=== PATIENT | male | born 1960 ===

== ENCOUNTER 2017-05-23 19:12 | Emergency (ER) | payer SELFPAY ==
[2017-05-23 19:36] VITALS: BP 157/90; PULSE 98; RESP 18; TEMP 98.3; O2SAT 99
--- NOTE | 2017-05-23 20:51 | ED PDOC ---
Upper Extremity Pain/Injury Time Seen by Provider: 05/23/17 20:48 Chief Complaint (Nursing): Abnormal Skin Integrity Chief Complaint (Provider): Left Arm Laceration History Per: Patient History/Exam Limitations: no limitations Onset/Duration Of Symptoms: Hrs (x2) Current Symptoms Are (Timing): Still Present Additional Complaint(s): 57 y/o male with a pmhx of diabetes, who presents to the ED for evaluation of a laceration to his left forearm x2 hours prior to arrival. Patient states he was working with a tool in his home when the injury occurred. States his Tetanus status is unknown. PMD: Provider TBD Past Medical History Reviewed: Historical Data, Nursing Documentation, Vital Signs Vital Signs: Last Vital Signs Temp 98.3 F 05/23/17 19:32 Pulse 98 H 05/23/17 19:32 Resp 18 05/23/17 19:32 BP 157/90 H 05/23/17 19:32 Pulse Ox 99 05/23/17 19:32 - Medical History PMH: Diabetes - Surgical History Surgical History: No Surg Hx - Family History Family History: States: Unknown Family Hx - Immunization History Hx Tetanus Toxoid Vaccination: No - Home Medications Home Medications: Ambulatory Orders Medication Instructions Recorded Cephalexin [cephalexin] 500 mg PO QID #40 cap 05/23/17 - Allergies Allergies/Adverse Reactions: Allergies Allergy/AdvReac Type Severity Reaction Status Date / Time No Known Allergies Allergy Verified 05/23/17 19:32 Review of Systems ROS Statement: Except As Marked, All Systems Reviewed And Found Negative Musculoskeletal: Positive for: Arm Pain Physical Exam - Reviewed Nursing Documentation Reviewed: Yes Vital Signs Reviewed: Yes - Physical Exam Appears: Positive for: Non-toxic, No Acute Distress Head Exam: Positive for: ATRAUMATIC Skin: Positive for: Normal Color, Warm Eye Exam: Positive for: Normal appearance Extremity: Positive for: Other (3 cm laceration to volar surface of left forearm , no active bleeding, hemostatically normal, flexor tendons intact, 5/5 strength ) Neurologic/Psych: Positive for: Alert, Oriented - ECG O2 Sat by Pulse Oximetry: 99 (RA) Pulse Ox Interpretation: Normal Medical Decision Making Medical Decision Makin:55 Initial Impression: Laceration Plan: -Tetanus -Close laceration -Reevaluation 22:10 Laceration closed with 4 3:0 proline sutures interrupted. Patient tolerated procedure well. Would well approximated. After closure, topical antibiotic was applied. Patient will be discharged with return precautions. Scribe Attestation: Documented by Carlos Mendoza, acting as a scribe for Vignesh Parra PA-C. Provider Scribe Attestation: All medical record entries made by the Scribe were at my direction and personally dictated by me. I have reviewed the chart and agree that the record accurately reflects my personal performance of the history, physical exam, medical decision making, and the department course for this patient. I have also personally directed, reviewed, and agree with the discharge instructions and disposition. Disposition - Clinical Impression Clinical Impression: Laceration - Patient ED Disposition Is Patient to be Admitted: No Doctor Will See Patient In The: Office Counseled Patient/Family Regarding: Diagnosis, Need For Followup, Rx Given - Disposition Disposition: Routine/Home Disposition Time: 22:15 Condition: STABLE Additional Instructions: SUTURES OUT IN 7 DAYS!!!! Prescriptions: Cephalexin [cephalexin] 500 mg PO QID #40 cap Forms: [employer] ([place]ian)
[2017-05-23] MEDS ORDERED: Lidocaine 1% w Epi 1:100,000 Inj ONE (21:39)
== END 2017-05-23 23:22 | disposition home or self-care (01) ==
LOC: H.ER 19:12
DX: S51.812A Laceration without foreign body of left forearm, initial encounter (principal); W26.8XXA Contact with other sharp object(s), not elsewhere classified, initial encounter; Y92.89 Other specified places as the place of occurrence of the external cause; E11.9 Type 2 diabetes mellitus without complications